=== PATIENT | female | born 1955 | race Caucasian/White ===

== ENCOUNTER 2022-09-01 04:22 | Day surgery (SDC) | payer BC ==
[2022-08-29 11:43] VITALS: BMI 23.6
[2022-09-01 08:29] VITALS: TEMP 97.5
[2022-09-01 14:31] VITALS: BP 140/81; PULSE 64; RESP 20
== END 2022-09-01 09:15 | disposition home or self-care (01) ==
LOC: JASU-ENDO 04:22
PROVIDERS: ATTEND Internal Medicine Gastroenterology
PROC: 0DJD8ZZ Inspection of Lower Intestinal Tract, Via Natural or Artificial Opening Endoscopic (ICD-10-PCS; principal; 2022-09-01 08:00)
DX: Z12.11 Encounter for screening for malignant neoplasm of colon (principal); K57.30 Diverticulosis of large intestine without perforation or abscess without bleeding; I10 Essential (primary) hypertension; Z80.0 Family history of malignant neoplasm of digestive organs